=== PATIENT | male | born 1960 | race Caucasian/White ===

== ENCOUNTER 2018-03-08 08:54 | Inpatient (IN) | payer OTHER, MEDICAID ==
[2018-03-08 09:47] LABS: ADD MAN DIFF? NO
[2018-03-08 09:50] LABS: BASOPHIL # 0.1 10^3/ul (0.0-0.1); BASOPHILS % 0.7 % (0.0-2.0); EOSINOPHILS # 0.5 10^3/ul (0.0-0.5); EOSINOPHILS % 5.1 % (0.0-7.0); HEMATOCRIT 22.8 % (42.0-52.0); HEMOGLOBIN 7.3 g/dl (14.0-18.0); LYMPHOCYTES # 2.1 10^3/ul (0.8-2.9); LYMPHOCYTES % 20.3 % (15.0-51.0); MEAN CORPUSCULAR HEMOGLOBIN 26.9 pg (29.0-33.0); MEAN CORPUSCULAR VOLUME 84.1 fl (82.0-101.0); MONOCYTE # 0.8 10^3/ul (0.3-0.9); MONOCYTES % 7.8 % (0.0-11.0); NEUTROPHIL # 6.7 10^3/ul (1.6-7.5); NEUTROPHILS % 65.3 % (39.0-77.0); PLATELET COUNT 430 10^3/UL (140-415); RED BLOOD COUNT 2.71 10^6/ul (4.70-6.10); RED CELL DISTRIBUTION WIDTH 15.3 % (11.5-14.5)
[2018-03-08 09:50] LABS: WHITE BLOOD COUNT 10.3 10^3/ul (4.8-10.8)
[2018-03-08] MEDS: FENTAnyl 50 MCG/ML VIAL IV (10:06)
[2018-03-08 10:21] LABS: INR 1.08; PROTIME 14.1 Sec (11.9-14.9); PT RATIO 1.1
[2018-03-08 10:22] LABS: PARTIAL THROMBOPLASTIN TIME 43.9 Sec (23.0-35.0)
[2018-03-08 10:23] LABS: ANION GAP 12 (5-13); BLOOD UREA NITROGEN 30 mg/dl (7-20); CARBON DIOXIDE 25 mmol/L (21-31); CHLORIDE 97 mmol/L (97-110); CREATININE 2.65 mg/dl (0.61-1.24); Estimated GFR 25 mL/min (>60); GLUCOSE 166 mg/dl (70-220); SODIUM 134 mmol/L (135-144)
[2018-03-08 10:33] LABS: TROPONIN-I < 0.012 ng/ml (0.000-0.120)
[2018-03-08] MEDS ORDERED: ONDANSETRON 4 MG INJ IV (11:00)
[2018-03-08] MEDS ORDERED: ACETAMINOPHEN 325 MG TAB PO (11:00)
[2018-03-08 11:14] LABS: VANCOMYCIN,RANDOM < 5.0 ug/ml
[2018-03-08] MEDS: hydrALAzine 20 MG INJ IV (11:35)
[2018-03-08 12:13] LABS: ERYTHROCYTE SEDIMENTATION RATE 130 mm/Hr (0-20)
[2018-03-08 12:17] LABS: C-REACTIVE PROTEIN 6.6 mg/dl (0.0-0.9)
[2018-03-08 12:58] LABS: ADD UMIC YES; UR ASCORBIC ACID NEGATIVE (NEGATIVE); UR BACTERIA FEW /HPF (NONE SEEN); UR BILIRUBIN (Dip) NEGATIVE (NEGATIVE); UR BLOOD (Dip) NEGATIVE (NEGATIVE); UR CLARITY CLEAR (CLEAR); UR COLOR STRAW (YELLOW); UR GLUCOSE (Dip) NEGATIVE (NEGATIVE); UR KETONES (Dip) NEGATIVE (NEGATIVE); UR LEUKOCYTE ESTERASE (Dip) NEGATIVE Leu/ul (NEGATIVE); UR NITRITE (Dip) NEGATIVE (NEGATIVE); UR RBC 1 /HPF (0-5); UR SPECIFIC GRAVITY (Dip) 1.006 (1.003-1.030); UR TOTAL PROTEIN (Dip) 1+ mg/dl (NEGATIVE); UR UROBILINOGEN (Dip) NEGATIVE (NEGATIVE); UR WBC 1 /HPF (0-5)
[2018-03-08 14:56] LABS: LACTIC ACID 0.9 mmol/L (0.5-2.0)
[2018-03-08] MEDS ORDERED: DEXTROSE 50% 50 ML SYRINGE IV ×4 (15:00→15:30)
[2018-03-08] MEDS ORDERED: GLUCOSE GEL 15 GRAM TUBE BUCCAL ×2 (15:00→15:30)
[2018-03-08] MEDS ORDERED: GLUCOSE GEL 15 GRAM TUBE PO ×4 (15:00→15:30)
[2018-03-08] MEDS ORDERED: GLUCAGON 1 MG INJ IM ×2 (15:00→15:30)
[2018-03-08] MEDS: AMLODIPINE 5 MG TAB PO (15:55)
[2018-03-08] MEDS: LEVOFLOXACIN 500MG/D5W (PMX) 100 ML IVPB (15:56)
[2018-03-08] MEDS: SOD CHLORIDE 0.9% 1,000 ML IV ×2 (15:56→22:56)
[2018-03-08] MEDS: ACCU-CHEK XX ×2 (17:38→20:37)
[2018-03-08] MEDS: INSULIN ASPART [NOVOLOG] 3 ML PEN SC ×3 (17:39→20:28)
[2018-03-08 17:52] LABS: SODIUM,URINE RANDOM 68 mmol/L (30-90)
[2018-03-08 17:52] LABS: CREATININE,URINE RANDOM 37.57 mg/dl (20-370)
[2018-03-08] MEDS: DAPTOMYCIN 280 MG in SOD CHLORIDE 0.9% 100 ML IVPB (17:57)
[2018-03-08] MEDS ORDERED: HYDROCODONE/APAP (5/325) TAB PO (20:00)
[2018-03-08] MEDS: ACETAMINOPHEN 325 MG TAB PO (20:29)
[2018-03-08] MEDS: ATORVASTATIN 10 MG TAB PO (20:29)
[2018-03-08] MEDS: FAMOTIDINE 20 MG TAB PO (20:30)
[2018-03-08] MEDS: LACTOBACILLUS RHAMNOSUS CAP PO (20:30)
[2018-03-08] MEDS: METOPROLOL 25 MG TAB PO (20:30)
[2018-03-08] MEDS: INSULIN GLARGINE [LANTus] (100 UNITS/ML) SYG SC (20:32)
[2018-03-09] MEDS: SOD CHLORIDE 0.9% 1,000 ML IV ×3 (01:37→23:37)
[2018-03-09] MEDS: ACCU-CHEK XX ×5 (02:00→20:31)
[2018-03-09 06:02] LABS: WHITE BLOOD COUNT 8.7 10^3/ul (4.8-10.8)
[2018-03-09 06:02] LABS: ABNORMAL IP MESSAGE 1; HEMATOCRIT 20.5 % (42.0-52.0); MEAN CORPUSCULAR HEMOGLOBIN 26.8 pg (29.0-33.0); MEAN CORPUSCULAR HGB CONC 31.2 g/dl (32.0-37.0); MEAN CORPUSCULAR VOLUME 85.8 fl (82.0-101.0); MEAN PLATELET VOLUME 8.2 fl (7.4-10.4); PLATELET COUNT 407 10^3/UL (140-415); POSITIVE DIFF @See below; RED BLOOD COUNT 2.39 10^6/ul (4.70-6.10); RED CELL DISTRIBUTION WIDTH 15.4 % (11.5-14.5)
[2018-03-09 06:31] LABS: ADD MAN DIFF? YES; HEMOGLOBIN 6.4 g/dl (14.0-18.0)
[2018-03-09 06:52] LABS: PHOSPHORUS 5.7 mg/dl (2.5-4.9)
[2018-03-09 06:58] LABS: ANION GAP 9 (5-13); BLOOD UREA NITROGEN 28 mg/dl (7-20); CALCIUM 8.4 mg/dl (8.4-10.2); CARBON DIOXIDE 23 mmol/L (21-31); CHLORIDE 100 mmol/L (97-110); CREATININE 2.43 mg/dl (0.61-1.24); Estimated GFR 28 mL/min (>60); GLUCOSE 98 mg/dl (70-220); MAGNESIUM 1.7 mg/dl (1.7-2.5); POTASSIUM 4.8 mmol/L (3.5-5.1); SODIUM 132 mmol/L (135-144)
[2018-03-09 07:14] LABS: IRON 28 ug/dl (35-150)
[2018-03-09 07:23] LABS: % IRON SATURATION 13 % SAT (22-52); TOTAL IRON BINDING CAPACITY 218 ug/dl (241-421)
[2018-03-09] MEDS: INSULIN ASPART [NOVOLOG] 3 ML PEN SC ×7 (08:00→20:31)
[2018-03-09 08:29] LABS: BAND NEUTROPHILS #M 0.3 10^3/ul (0.0-0.6); BAND NEUTROPHILS % (M) 4 % (0-4); BASOPHIL #M 0.1 10^3/ul (0.0-0.0); BASOPHILS % (M) 2 % (0-2); EOSINOPHILS % (M) 6 % (0-7); GIANT THROMBO% (M) 2 % (0-0); LYMPHOCYTES #M 1.5 10^3/ul (0.8-2.9); LYMPHOCYTES % (M) 18 % (15-51); MICROCYTOSIS 1+ (0-0); MONOCYTE #M 0.9 10^3/ul (0.3-0.9); MONOCYTES % (M) 11 % (0-11); PLATELET ESTIMATE NORMAL; POLYCHROMASIA 1+ (0-0); SEG NEUT #M 5.2 10^3/ul (1.6-7.5); SEGMENTED NEUTROPHILS (M) % 59 % (39-77); SMUDGE%M 9 % (0-0)
[2018-03-09] MEDS: METOPROLOL 25 MG TAB PO ×2 (09:37→20:31)
[2018-03-09] MEDS: FAMOTIDINE 20 MG TAB PO (09:37)
[2018-03-09] MEDS: FLUCONAZOLE 200 MG TAB PO (09:37)
[2018-03-09] MEDS: LACTOBACILLUS RHAMNOSUS CAP PO ×2 (09:37→20:30)
[2018-03-09] MEDS: AMLODIPINE 5 MG TAB PO (09:38)
[2018-03-09] MEDS: LINAGLIPTIN 5 MG TABLET PO (09:47)
[2018-03-09] MEDS: SODIUM HYPOCHLORITE (1/40) 1 APPLIC BTL IRR (10:22)
[2018-03-09] MEDS ORDERED: MAGNESIUM HYDROXIDE 30ML CUP PO (13:30)
[2018-03-09] MEDS: DOCUSATE SODIUM 100 MG CAP PO (14:21)
[2018-03-09] MEDS: POLYETHYLENE GLYCOL 17 GM PACKET PO (14:22)
[2018-03-09] MEDS: DAPTOMYCIN 280 MG in SOD CHLORIDE 0.9% 100 ML IVPB (17:27)
[2018-03-09] MEDS: SOD FERRIC GLUC COMPLX 125 MG in SOD CHLORIDE 0.9% 100 ML IVPB (18:03)
[2018-03-09] MEDS: ATORVASTATIN 10 MG TAB PO (20:30)
[2018-03-09] MEDS: INSULIN GLARGINE [LANTus] (100 UNITS/ML) SYG SC (20:33)
[2018-03-09 20:56] LABS: IMMEDIATE SPIN CROSSMATCH 1 2
[2018-03-10] MEDS: ACCU-CHEK XX ×5 (02:00→20:16)
[2018-03-10 05:21] LABS: ADD MAN DIFF? NO
[2018-03-10 05:29] LABS: WHITE BLOOD COUNT 11.3 10^3/ul (4.8-10.8)
[2018-03-10 05:29] LABS: BASOPHIL # 0.1 10^3/ul (0.0-0.1); BASOPHILS % 0.5 % (0.0-2.0); EOSINOPHILS # 0.3 10^3/ul (0.0-0.5); EOSINOPHILS % 2.3 % (0.0-7.0); HEMATOCRIT 27.2 % (42.0-52.0); HEMOGLOBIN 8.9 g/dl (14.0-18.0); LYMPHOCYTES % 26.2 % (15.0-51.0); MEAN CORPUSCULAR HEMOGLOBIN 27.7 pg (29.0-33.0); MEAN CORPUSCULAR HGB CONC 32.7 g/dl (32.0-37.0); MEAN CORPUSCULAR VOLUME 84.7 fl (82.0-101.0); MEAN PLATELET VOLUME 8.2 fl (7.4-10.4); MONOCYTE # 0.9 10^3/ul (0.3-0.9); NEUTROPHIL # 7.1 10^3/ul (1.6-7.5); NEUTROPHILS % 62.6 % (39.0-77.0); PLATELET COUNT 402 10^3/UL (140-415); RED BLOOD COUNT 3.21 10^6/ul (4.70-6.10); RED CELL DISTRIBUTION WIDTH 14.6 % (11.5-14.5)
[2018-03-10 05:50] LABS: CREATINE KINASE 32 IU/L (23-200)
[2018-03-10 05:53] LABS: ANION GAP 13 (5-13); BLOOD UREA NITROGEN 22 mg/dl (7-20); CALCIUM 8.3 mg/dl (8.4-10.2); CARBON DIOXIDE 21 mmol/L (21-31); CHLORIDE 100 mmol/L (97-110); CREATININE 2.34 mg/dl (0.61-1.24); Estimated GFR 29 mL/min (>60); GLUCOSE 67 mg/dl (70-220); POTASSIUM 4.3 mmol/L (3.5-5.1); SODIUM 134 mmol/L (135-144)
[2018-03-10 05:57] LABS: PHOSPHORUS 5.7 mg/dl (2.5-4.9)
[2018-03-10 05:57] LABS: MAGNESIUM 1.5 mg/dl (1.7-2.5)
[2018-03-10] MEDS: INSULIN ASPART [NOVOLOG] 3 ML PEN SC ×7 (08:00→20:25)
[2018-03-10 08:13] LABS: OCCULT BLOOD STOOL NEGATIVE (NEGATIVE)
[2018-03-10] MEDS: POLYETHYLENE GLYCOL 17 GM PACKET PO (08:23)
[2018-03-10] MEDS: AMLODIPINE 5 MG TAB PO (08:23)
[2018-03-10] MEDS: LINAGLIPTIN 5 MG TABLET PO (08:23)
[2018-03-10] MEDS: FAMOTIDINE 20 MG TAB PO (08:24)
[2018-03-10] MEDS: DOCUSATE SODIUM 100 MG CAP PO (08:24)
[2018-03-10] MEDS: LACTOBACILLUS RHAMNOSUS CAP PO ×2 (08:24→20:15)
[2018-03-10] MEDS: METOPROLOL 25 MG TAB PO ×2 (08:24→20:15)
[2018-03-10] MEDS: FLUCONAZOLE 200 MG TAB PO (08:24)
[2018-03-10] MEDS: SODIUM HYPOCHLORITE (1/40) 1 APPLIC BTL IRR (08:27)
[2018-03-10] MEDS: LEVOFLOXACIN 500MG/D5W (PMX) 100 ML IVPB (16:13)
[2018-03-10] MEDS: DAPTOMYCIN 280 MG in SOD CHLORIDE 0.9% 100 ML IVPB (17:53)
[2018-03-10] MEDS: SOD FERRIC GLUC COMPLX 125 MG in SOD CHLORIDE 0.9% 100 ML IVPB (18:58)
[2018-03-10] MEDS: ATORVASTATIN 10 MG TAB PO (20:15)
[2018-03-10] MEDS: ACETAMINOPHEN 325 MG TAB PO (20:15)
[2018-03-10] MEDS: INSULIN GLARGINE [LANTus] (100 UNITS/ML) SYG SC (20:24)
[2018-03-11] MEDS: ACCU-CHEK XX ×5 (01:55→20:36)
[2018-03-11 05:39] LABS: ADD MAN DIFF? NO
[2018-03-11 05:42] LABS: WHITE BLOOD COUNT 8.9 10^3/ul (4.8-10.8)
[2018-03-11 05:42] LABS: BASOPHILS % 0.4 % (0.0-2.0); EOSINOPHILS # 0.3 10^3/ul (0.0-0.5); EOSINOPHILS % 3.1 % (0.0-7.0); HEMATOCRIT 27.8 % (42.0-52.0); HEMOGLOBIN 9.2 g/dl (14.0-18.0); LYMPHOCYTES % 22.2 % (15.0-51.0); MEAN CORPUSCULAR HGB CONC 33.1 g/dl (32.0-37.0); MEAN CORPUSCULAR VOLUME 84.8 fl (82.0-101.0); MEAN PLATELET VOLUME 7.9 fl (7.4-10.4); MONOCYTE # 0.7 10^3/ul (0.3-0.9); MONOCYTES % 7.5 % (0.0-11.0); NEUTROPHIL # 5.9 10^3/ul (1.6-7.5); NEUTROPHILS % 66.2 % (39.0-77.0); PLATELET COUNT 423 10^3/UL (140-415); RED BLOOD COUNT 3.28 10^6/ul (4.70-6.10); RED CELL DISTRIBUTION WIDTH 14.6 % (11.5-14.5)
[2018-03-11 06:17] LABS: MAGNESIUM 1.7 mg/dl (1.7-2.5)
[2018-03-11 06:20] LABS: ANION GAP 15 (5-13); BLOOD UREA NITROGEN 21 mg/dl (7-20); CALCIUM 8.3 mg/dl (8.4-10.2); CARBON DIOXIDE 24 mmol/L (21-31); CHLORIDE 99 mmol/L (97-110); CREATININE 2.51 mg/dl (0.61-1.24); Estimated GFR 27 mL/min (>60); GLUCOSE 238 mg/dl (70-220); POTASSIUM 4.4 mmol/L (3.5-5.1); SODIUM 138 mmol/L (135-144)
[2018-03-11] MEDS: INSULIN ASPART [NOVOLOG] 3 ML PEN SC ×7 (07:49→20:30)
[2018-03-11] MEDS: DOCUSATE SODIUM 100 MG CAP PO (08:08)
[2018-03-11] MEDS: LACTOBACILLUS RHAMNOSUS CAP PO ×2 (08:08→20:28)
[2018-03-11] MEDS: AMLODIPINE 5 MG TAB PO (08:08)
[2018-03-11] MEDS: LINAGLIPTIN 5 MG TABLET PO (08:08)
[2018-03-11] MEDS: SODIUM HYPOCHLORITE (1/40) 1 APPLIC BTL IRR (08:09)
[2018-03-11] MEDS: FAMOTIDINE 20 MG TAB PO (08:09)
[2018-03-11] MEDS: FLUCONAZOLE 200 MG TAB PO (08:09)
[2018-03-11] MEDS: METOPROLOL 25 MG TAB PO ×2 (08:09→20:29)
[2018-03-11] MEDS: POLYETHYLENE GLYCOL 17 GM PACKET PO (08:09)
[2018-03-11] MEDS: ALTEPLASE (CATHFLO) 2 MG INJ CATHETER (11:29)
[2018-03-11] MEDS ORDERED: HEPARIN 5,000 UNIT/0.5 ML VIAL ×2 (13:59→20:49)
[2018-03-11] MEDS: HEPARIN 5,000 UNIT/1 ML VIAL SC ×2 (14:11→21:54)
[2018-03-11 15:01] LABS: CREATININE, RANDOM URINE 41 mg/dL (20-320); MICROALBUMIN 26.6 mg/dL; MICROALBUMIN/CREATININE RATIO 649 (<30)
[2018-03-11] MEDS: DAPTOMYCIN 280 MG in SOD CHLORIDE 0.9% 100 ML IVPB (16:49)
[2018-03-11] MEDS: SOD FERRIC GLUC COMPLX 125 MG in SOD CHLORIDE 0.9% 100 ML IVPB (17:38)
[2018-03-11] MEDS: ACETAMINOPHEN 325 MG TAB PO (19:48)
[2018-03-11] MEDS: ATORVASTATIN 10 MG TAB PO (20:28)
[2018-03-11] MEDS: INSULIN GLARGINE [LANTus] (100 UNITS/ML) SYG SC (20:34)
[2018-03-12] MEDS: ACCU-CHEK XX ×6 (00:04→20:41)
[2018-03-12] MEDS ORDERED: HEPARIN 5,000 UNIT/0.5 ML VIAL ×3 (05:36→21:53)
[2018-03-12] MEDS: LEVOFLOXACIN 500 MG TAB PO (05:47)
[2018-03-12] MEDS: HEPARIN 5,000 UNIT/1 ML VIAL SC ×3 (05:52→22:07)
[2018-03-12 06:58] LABS: ADD MAN DIFF? NO
[2018-03-12 07:03] LABS: BASOPHIL # 0.1 10^3/ul (0.0-0.1); BASOPHILS % 0.5 % (0.0-2.0); EOSINOPHILS # 0.4 10^3/ul (0.0-0.5); EOSINOPHILS % 4.4 % (0.0-7.0); HEMATOCRIT 26.1 % (42.0-52.0); HEMOGLOBIN 8.5 g/dl (14.0-18.0); LYMPHOCYTES # 2.6 10^3/ul (0.8-2.9); LYMPHOCYTES % 25.6 % (15.0-51.0); MEAN CORPUSCULAR HEMOGLOBIN 27.7 pg (29.0-33.0); MEAN CORPUSCULAR HGB CONC 32.6 g/dl (32.0-37.0); MEAN PLATELET VOLUME 8.2 fl (7.4-10.4); MONOCYTE # 0.7 10^3/ul (0.3-0.9); MONOCYTES % 7.4 % (0.0-11.0); NEUTROPHIL # 6.1 10^3/ul (1.6-7.5); NEUTROPHILS % 61.6 % (39.0-77.0); PLATELET COUNT 394 10^3/UL (140-415); RED BLOOD COUNT 3.07 10^6/ul (4.70-6.10); RED CELL DISTRIBUTION WIDTH 14.8 % (11.5-14.5)
[2018-03-12 07:24] LABS: ANION GAP 8 (5-13); BLOOD UREA NITROGEN 24 mg/dl (7-20); CALCIUM 8.4 mg/dl (8.4-10.2); CARBON DIOXIDE 25 mmol/L (21-31); CHLORIDE 99 mmol/L (97-110); Estimated GFR 27 mL/min (>60); GLUCOSE 206 mg/dl (70-220); MAGNESIUM 1.6 mg/dl (1.7-2.5); PHOSPHORUS 4.3 mg/dl (2.5-4.9); POTASSIUM 4.5 mmol/L (3.5-5.1); SODIUM 132 mmol/L (135-144)
[2018-03-12] MEDS: INSULIN ASPART [NOVOLOG] 3 ML PEN SC ×7 (08:23→20:24)
[2018-03-12] MEDS: FLUCONAZOLE 200 MG TAB PO (08:26)
[2018-03-12] MEDS: FAMOTIDINE 20 MG TAB PO (08:26)
[2018-03-12] MEDS: LINAGLIPTIN 5 MG TABLET PO (08:26)
[2018-03-12] MEDS: DOCUSATE SODIUM 100 MG CAP PO (08:26)
[2018-03-12] MEDS: LACTOBACILLUS RHAMNOSUS CAP PO ×2 (08:26→20:24)
[2018-03-12] MEDS: METOPROLOL 25 MG TAB PO ×2 (08:27→20:24)
[2018-03-12] MEDS: AMLODIPINE 5 MG TAB PO (08:27)
[2018-03-12] MEDS: SODIUM HYPOCHLORITE (1/40) 1 APPLIC BTL IRR (08:29)
[2018-03-12] MEDS: POLYETHYLENE GLYCOL 17 GM PACKET PO (08:30)
[2018-03-12] MEDS: SOD FERRIC GLUC COMPLX 125 MG in SOD CHLORIDE 0.9% 100 ML IVPB (16:36)
[2018-03-12] MEDS: DAPTOMYCIN 280 MG in SOD CHLORIDE 0.9% 100 ML IVPB (16:36)
[2018-03-12] MEDS: ATORVASTATIN 10 MG TAB PO (20:24)
[2018-03-12] MEDS: INSULIN GLARGINE [LANTus] (100 UNITS/ML) SYG SC (20:41)
[2018-03-12] MEDS: ACETAMINOPHEN 325 MG TAB PO (21:04)
[2018-03-13] MEDS ORDERED: SOD CHLORIDE 0.9% IVPB (05:00)
[2018-03-13] MEDS ORDERED: ACYCLOVIR IVPB (05:00)
[2018-03-13] MEDS ORDERED: HEPARIN 5,000 UNIT/0.5 ML VIAL ×3 (05:07→20:32)
[2018-03-13] MEDS: HEPARIN 5,000 UNIT/1 ML VIAL SC ×3 (05:17→20:49)
[2018-03-13 06:02] LABS: ADD MAN DIFF? NO
[2018-03-13 06:08] LABS: BASOPHIL # 0.1 10^3/ul (0.0-0.1); BASOPHILS % 0.6 % (0.0-2.0); EOSINOPHILS # 0.5 10^3/ul (0.0-0.5); EOSINOPHILS % 4.9 % (0.0-7.0); HEMATOCRIT 25.7 % (42.0-52.0); HEMOGLOBIN 8.6 g/dl (14.0-18.0); LYMPHOCYTES # 2.3 10^3/ul (0.8-2.9); LYMPHOCYTES % 24.3 % (15.0-51.0); MEAN CORPUSCULAR HEMOGLOBIN 28.2 pg (29.0-33.0); MEAN CORPUSCULAR HGB CONC 33.5 g/dl (32.0-37.0); MEAN CORPUSCULAR VOLUME 84.3 fl (82.0-101.0); MEAN PLATELET VOLUME 8.1 fl (7.4-10.4); MONOCYTE # 0.8 10^3/ul (0.3-0.9); MONOCYTES % 8.2 % (0.0-11.0); NEUTROPHIL # 5.7 10^3/ul (1.6-7.5); NEUTROPHILS % 61.5 % (39.0-77.0); PLATELET COUNT 390 10^3/UL (140-415); RED BLOOD COUNT 3.05 10^6/ul (4.70-6.10); RED CELL DISTRIBUTION WIDTH 14.7 % (11.5-14.5)
[2018-03-13 06:08] LABS: WHITE BLOOD COUNT 9.3 10^3/ul (4.8-10.8)
[2018-03-13 06:58] LABS: ANION GAP 12 (5-13); BLOOD UREA NITROGEN 27 mg/dl (7-20); CALCIUM 8.7 mg/dl (8.4-10.2); CARBON DIOXIDE 24 mmol/L (21-31); CHLORIDE 103 mmol/L (97-110); CREATININE 2.64 mg/dl (0.61-1.24); Estimated GFR 25 mL/min (>60); GLUCOSE 105 mg/dl (70-220); POTASSIUM 4.2 mmol/L (3.5-5.1); SODIUM 139 mmol/L (135-144)
[2018-03-13] MEDS: ACCU-CHEK XX ×4 (07:00→20:49)
[2018-03-13 07:07] LABS: MAGNESIUM 1.6 mg/dl (1.7-2.5)
[2018-03-13] MEDS: INSULIN ASPART [NOVOLOG] 3 ML PEN SC ×7 (08:00→20:43)
[2018-03-13] MEDS: FLUCONAZOLE 200 MG TAB PO (08:19)
[2018-03-13] MEDS: LACTOBACILLUS RHAMNOSUS CAP PO ×2 (08:19→20:43)
[2018-03-13] MEDS: DOCUSATE SODIUM 100 MG CAP PO (08:19)
[2018-03-13] MEDS: FAMOTIDINE 20 MG TAB PO (08:19)
[2018-03-13] MEDS: AMLODIPINE 5 MG TAB PO (08:19)
[2018-03-13] MEDS: POLYETHYLENE GLYCOL 17 GM PACKET PO (08:19)
[2018-03-13] MEDS: METOPROLOL 25 MG TAB PO ×2 (08:20→20:43)
[2018-03-13] MEDS: LINAGLIPTIN 5 MG TABLET PO (08:20)
[2018-03-13] MEDS: SODIUM HYPOCHLORITE (1/40) 1 APPLIC BTL IRR (08:23)
[2018-03-13] MEDS: MAGNESIUM SULFATE 2 GM/50 ML 50 ML IVPB (10:31)
[2018-03-13] MEDS: SOD FERRIC GLUC COMPLX 125 MG in SOD CHLORIDE 0.9% 100 ML IVPB (16:26)
[2018-03-13] MEDS: DAPTOMYCIN 280 MG in SOD CHLORIDE 0.9% 100 ML IVPB (18:01)
[2018-03-13] MEDS: ATORVASTATIN 10 MG TAB PO (20:43)
[2018-03-13] MEDS: INSULIN GLARGINE [LANTus] (100 UNITS/ML) SYG SC (20:48)
[2018-03-14] MEDS: ACCU-CHEK XX ×5 (01:12→20:43)
[2018-03-14] MEDS ORDERED: HEPARIN 5,000 UNIT/0.5 ML VIAL ×3 (05:31→21:13)
[2018-03-14] MEDS: LEVOFLOXACIN 500 MG TAB PO (05:51)
[2018-03-14] MEDS: HEPARIN 5,000 UNIT/1 ML VIAL SC ×3 (06:02→22:01)
[2018-03-14 06:32] LABS: ADD MAN DIFF? NO
[2018-03-14 06:37] LABS: WHITE BLOOD COUNT 9.2 10^3/ul (4.8-10.8)
[2018-03-14 06:37] LABS: BASOPHIL # 0.1 10^3/ul (0.0-0.1); BASOPHILS % 0.5 % (0.0-2.0); EOSINOPHILS # 0.5 10^3/ul (0.0-0.5); EOSINOPHILS % 5.2 % (0.0-7.0); HEMATOCRIT 25.4 % (42.0-52.0); HEMOGLOBIN 8.2 g/dl (14.0-18.0); LYMPHOCYTES # 2.2 10^3/ul (0.8-2.9); LYMPHOCYTES % 23.8 % (15.0-51.0); MEAN CORPUSCULAR HEMOGLOBIN 27.4 pg (29.0-33.0); MEAN CORPUSCULAR HGB CONC 32.3 g/dl (32.0-37.0); MEAN CORPUSCULAR VOLUME 84.9 fl (82.0-101.0); MEAN PLATELET VOLUME 8.1 fl (7.4-10.4); MONOCYTE # 0.8 10^3/ul (0.3-0.9); MONOCYTES % 8.3 % (0.0-11.0); NEUTROPHIL # 5.7 10^3/ul (1.6-7.5); NEUTROPHILS % 61.8 % (39.0-77.0); PLATELET COUNT 362 10^3/UL (140-415); RED BLOOD COUNT 2.99 10^6/ul (4.70-6.10); RED CELL DISTRIBUTION WIDTH 14.9 % (11.5-14.5)
[2018-03-14 07:03] LABS: ANION GAP 10 (5-13); BLOOD UREA NITROGEN 25 mg/dl (7-20); CALCIUM 8.6 mg/dl (8.4-10.2); CARBON DIOXIDE 26 mmol/L (21-31); CHLORIDE 99 mmol/L (97-110); CREATININE 2.48 mg/dl (0.61-1.24); Estimated GFR 27 mL/min (>60); GLUCOSE 125 mg/dl (70-220); POTASSIUM 4.5 mmol/L (3.5-5.1); SODIUM 135 mmol/L (135-144)
[2018-03-14 07:05] LABS: MAGNESIUM 1.9 mg/dl (1.7-2.5)
[2018-03-14] MEDS: DOCUSATE SODIUM 100 MG CAP PO (08:11)
[2018-03-14] MEDS: LINAGLIPTIN 5 MG TABLET PO (08:11)
[2018-03-14] MEDS: FAMOTIDINE 20 MG TAB PO (08:11)
[2018-03-14] MEDS: POLYETHYLENE GLYCOL 17 GM PACKET PO (08:11)
[2018-03-14] MEDS: METOPROLOL 25 MG TAB PO ×2 (08:12→20:39)
[2018-03-14] MEDS: FLUCONAZOLE 200 MG TAB PO (08:12)
[2018-03-14] MEDS: LACTOBACILLUS RHAMNOSUS CAP PO ×2 (08:12→20:38)
[2018-03-14] MEDS: SODIUM HYPOCHLORITE (1/40) 1 APPLIC BTL IRR (08:13)
[2018-03-14] MEDS: AMLODIPINE 5 MG TAB PO (08:13)
[2018-03-14] MEDS: INSULIN ASPART [NOVOLOG] 3 ML PEN SC ×7 (08:19→20:39)
[2018-03-14] MEDS: ATORVASTATIN 10 MG TAB PO (20:38)
[2018-03-14] MEDS: INSULIN GLARGINE [LANTus] (100 UNITS/ML) SYG SC (20:42)
[2018-03-15] MEDS: ACCU-CHEK XX ×5 (02:00→20:36)
[2018-03-15] MEDS ORDERED: HEPARIN 5,000 UNIT/0.5 ML VIAL ×3 (05:25→21:27)
[2018-03-15] MEDS: HEPARIN 5,000 UNIT/1 ML VIAL SC ×4 (05:51→21:36)
[2018-03-15 07:32] LABS: ADD MAN DIFF? NO
[2018-03-15 07:38] LABS: BASOPHILS % 0.4 % (0.0-2.0); EOSINOPHILS # 0.6 10^3/ul (0.0-0.5); HEMATOCRIT 25.9 % (42.0-52.0); HEMOGLOBIN 8.5 g/dl (14.0-18.0); LYMPHOCYTES # 2.5 10^3/ul (0.8-2.9); LYMPHOCYTES % 27.2 % (15.0-51.0); MEAN CORPUSCULAR HEMOGLOBIN 28.1 pg (29.0-33.0); MEAN CORPUSCULAR HGB CONC 32.8 g/dl (32.0-37.0); MEAN CORPUSCULAR VOLUME 85.5 fl (82.0-101.0); MEAN PLATELET VOLUME 8.2 fl (7.4-10.4); MONOCYTE # 0.8 10^3/ul (0.3-0.9); MONOCYTES % 8.7 % (0.0-11.0); NEUTROPHIL # 5.2 10^3/ul (1.6-7.5); NEUTROPHILS % 57.2 % (39.0-77.0); PLATELET COUNT 362 10^3/UL (140-415); RED BLOOD COUNT 3.03 10^6/ul (4.70-6.10); RED CELL DISTRIBUTION WIDTH 14.9 % (11.5-14.5)
[2018-03-15 07:38] LABS: WHITE BLOOD COUNT 9.2 10^3/ul (4.8-10.8)
[2018-03-15 07:50] LABS: ANION GAP 11 (5-13); BLOOD UREA NITROGEN 26 mg/dl (7-20); CALCIUM 8.7 mg/dl (8.4-10.2); CARBON DIOXIDE 25 mmol/L (21-31); CHLORIDE 102 mmol/L (97-110); CREATININE 2.54 mg/dl (0.61-1.24); Estimated GFR 26 mL/min (>60); GLUCOSE 167 mg/dl (70-220); POTASSIUM 4.6 mmol/L (3.5-5.1); SODIUM 138 mmol/L (135-144)
[2018-03-15 07:51] LABS: MAGNESIUM 1.8 mg/dl (1.7-2.5)
[2018-03-15] MEDS: INSULIN ASPART [NOVOLOG] 3 ML PEN SC ×7 (08:18→20:52)
[2018-03-15] MEDS: POLYETHYLENE GLYCOL 17 GM PACKET PO (08:56)
[2018-03-15] MEDS: FLUCONAZOLE 200 MG TAB PO (08:56)
[2018-03-15] MEDS: METOPROLOL 25 MG TAB PO ×2 (08:57→20:36)
[2018-03-15] MEDS: AMLODIPINE 5 MG TAB PO (08:58)
[2018-03-15] MEDS: LACTOBACILLUS RHAMNOSUS CAP PO ×2 (08:58→20:36)
[2018-03-15] MEDS: LINAGLIPTIN 5 MG TABLET PO (08:58)
[2018-03-15] MEDS: FAMOTIDINE 20 MG TAB PO (08:58)
[2018-03-15] MEDS: DOCUSATE SODIUM 100 MG CAP PO (08:59)
[2018-03-15] MEDS: SODIUM HYPOCHLORITE (1/40) 1 APPLIC BTL IRR (11:21)
[2018-03-15] MEDS: DAPTOMYCIN 420 MG in SOD CHLORIDE 0.9% 100 ML IVPB (17:50)
[2018-03-15] MEDS: ATORVASTATIN 10 MG TAB PO (20:36)
[2018-03-15] MEDS: INSULIN GLARGINE [LANTus] (100 UNITS/ML) SYG SC (20:52)
[2018-03-16] MEDS: INSULIN ASPART [NOVOLOG] 3 ML PEN SC ×9 (01:00→21:00)
[2018-03-16] MEDS: ACCU-CHEK XX ×5 (01:30→21:36)
[2018-03-16] MEDS: LEVOFLOXACIN 500 MG TAB PO (04:40)
[2018-03-16] MEDS: HEPARIN 5,000 UNIT/1 ML VIAL SC (04:40)
[2018-03-16] MEDS ORDERED: ONDANSETRON 4 MG INJ (07:00)
[2018-03-16 07:35] LABS: ADD MAN DIFF? NO
[2018-03-16 07:37] LABS: WHITE BLOOD COUNT 9.8 10^3/ul (4.8-10.8)
[2018-03-16 07:37] LABS: BASOPHILS % 0.4 % (0.0-2.0); EOSINOPHILS # 0.6 10^3/ul (0.0-0.5); EOSINOPHILS % 6.4 % (0.0-7.0); HEMATOCRIT 25.7 % (42.0-52.0); HEMOGLOBIN 8.4 g/dl (14.0-18.0); LYMPHOCYTES # 2.7 10^3/ul (0.8-2.9); MEAN CORPUSCULAR HGB CONC 32.7 g/dl (32.0-37.0); MEAN CORPUSCULAR VOLUME 85.7 fl (82.0-101.0); MONOCYTE # 0.8 10^3/ul (0.3-0.9); MONOCYTES % 8.6 % (0.0-11.0); NEUTROPHIL # 5.5 10^3/ul (1.6-7.5); NEUTROPHILS % 56.1 % (39.0-77.0); PLATELET COUNT 352 10^3/UL (140-415); RED CELL DISTRIBUTION WIDTH 14.9 % (11.5-14.5)
[2018-03-16 08:10] LABS: ANION GAP 13 (5-13); BLOOD UREA NITROGEN 28 mg/dl (7-20); CALCIUM 8.7 mg/dl (8.4-10.2); CARBON DIOXIDE 24 mmol/L (21-31); CHLORIDE 102 mmol/L (97-110); Estimated GFR 27 mL/min (>60); GLUCOSE 95 mg/dl (70-220); POTASSIUM 4.6 mmol/L (3.5-5.1); SODIUM 139 mmol/L (135-144)
[2018-03-16] MEDS: LACTOBACILLUS RHAMNOSUS CAP PO ×2 (08:30→21:42)
[2018-03-16] MEDS: DOCUSATE SODIUM 100 MG CAP PO (08:30)
[2018-03-16] MEDS: AMLODIPINE 5 MG TAB PO (08:31)
[2018-03-16] MEDS: METOPROLOL 25 MG TAB PO ×2 (08:31→21:42)
[2018-03-16] MEDS: FAMOTIDINE 20 MG TAB PO (08:31)
[2018-03-16] MEDS: FLUCONAZOLE 200 MG TAB PO (08:31)
[2018-03-16] MEDS: POLYETHYLENE GLYCOL 17 GM PACKET PO (08:32)
[2018-03-16] MEDS: LINAGLIPTIN 5 MG TABLET PO (08:37)
[2018-03-16] MEDS: SODIUM HYPOCHLORITE (1/40) 1 APPLIC BTL IRR (09:00)
[2018-03-16] MEDS: D5W-0.45 NACL + KCL 20 MEQ 1,000 ML IV (10:54)
[2018-03-16] MEDS ORDERED: FENTAnyl 50 MCG/ML VIAL (17:21)
[2018-03-16] MEDS ORDERED: MIDAZOLAM 1 MG/ML 2 ML INJ (17:21)
[2018-03-16] MEDS ORDERED: LIDOCAINE 2% (SDV) 5 ML INJ (17:29)
[2018-03-16] MEDS ORDERED: ETOMIDATE 20 MG INJ (17:29)
[2018-03-16] MEDS ORDERED: METOCLOPRAMIDE 10 MG INJ (17:30)
[2018-03-16] MEDS ORDERED: GENTAMICIN 80 MG INJ (19:04)
[2018-03-16] MEDS ORDERED: ROPIVACAINE 0.5 % 30 ML VIAL (19:18)
[2018-03-16] MEDS ORDERED: HYDROmorphONE 1 MG/5 ML IV SYRINGE IV ×2 (19:30)
[2018-03-16] MEDS ORDERED: ONDANSETRON 4 MG INJ IV (19:30)
[2018-03-16] MEDS ORDERED: LABETALOL HCL 20MG INJ IV (19:30)
[2018-03-16] MEDS ORDERED: DIPHENHYDRAMINE 50 MG INJ IV (19:30)
[2018-03-16] MEDS ORDERED: hydrALAzine 20 MG INJ IV (19:30)
[2018-03-16] MEDS ORDERED: IPRATROPIUM (NEB) 0.5 MG/2.5 ML AMP HHN (19:30)
[2018-03-16] MEDS ORDERED: LEVALBUTEROL (NEB) 1.25 MG/0.5 ML AMP HHN (19:30)
[2018-03-16] MEDS ORDERED: FENTAnyl 50 MCG/ML VIAL IV ×2 (19:30)
[2018-03-16] MEDS: VANCOMYCIN 1 GM INJ (19:59)
[2018-03-16] MEDS: POLYMYXIN B 500000 UNIT INJ (19:59)
[2018-03-16] MEDS: INSULIN GLARGINE [LANTus] (100 UNITS/ML) SYG SC (21:41)
[2018-03-16] MEDS: ATORVASTATIN 10 MG TAB PO (21:42)
[2018-03-17] MEDS: ACCU-CHEK XX ×5 (02:00→21:00)
[2018-03-17 06:15] LABS: ADD MAN DIFF? NO
[2018-03-17 06:20] LABS: WHITE BLOOD COUNT 9.9 10^3/ul (4.8-10.8)
[2018-03-17 06:20] LABS: BASOPHIL # 0.1 10^3/ul (0.0-0.1); BASOPHILS % 0.6 % (0.0-2.0); EOSINOPHILS # 0.6 10^3/ul (0.0-0.5); EOSINOPHILS % 5.6 % (0.0-7.0); HEMATOCRIT 24.6 % (42.0-52.0); LYMPHOCYTES # 1.9 10^3/ul (0.8-2.9); LYMPHOCYTES % 19.2 % (15.0-51.0); MEAN CORPUSCULAR HEMOGLOBIN 27.9 pg (29.0-33.0); MEAN CORPUSCULAR HGB CONC 32.5 g/dl (32.0-37.0); MEAN CORPUSCULAR VOLUME 85.7 fl (82.0-101.0); MEAN PLATELET VOLUME 8.2 fl (7.4-10.4); MONOCYTE # 0.9 10^3/ul (0.3-0.9); MONOCYTES % 8.7 % (0.0-11.0); NEUTROPHIL # 6.5 10^3/ul (1.6-7.5); NEUTROPHILS % 65.4 % (39.0-77.0); PLATELET COUNT 301 10^3/UL (140-415); RED BLOOD COUNT 2.87 10^6/ul (4.70-6.10); RED CELL DISTRIBUTION WIDTH 15.2 % (11.5-14.5)
[2018-03-17 07:03] LABS: CREATINE KINASE 24 IU/L (23-200)
[2018-03-17 07:03] LABS: ANION GAP 9 (5-13); BLOOD UREA NITROGEN 27 mg/dl (7-20); CALCIUM 8.4 mg/dl (8.4-10.2); CARBON DIOXIDE 25 mmol/L (21-31); CHLORIDE 101 mmol/L (97-110); CREATININE 2.31 mg/dl (0.61-1.24); Estimated GFR 29 mL/min (>60); GLUCOSE 144 mg/dl (70-220); POTASSIUM 4.2 mmol/L (3.5-5.1); SODIUM 135 mmol/L (135-144)
[2018-03-17] MEDS: INSULIN ASPART [NOVOLOG] 3 ML PEN SC ×7 (08:00→20:52)
[2018-03-17] MEDS: POLYETHYLENE GLYCOL 17 GM PACKET PO (09:00)
[2018-03-17] MEDS: DOCUSATE SODIUM 100 MG CAP PO (09:02)
[2018-03-17] MEDS: FLUCONAZOLE 200 MG TAB PO (09:03)
[2018-03-17] MEDS: LACTOBACILLUS RHAMNOSUS CAP PO ×2 (09:03→20:52)
[2018-03-17] MEDS: METOPROLOL 25 MG TAB PO ×2 (09:03→20:52)
[2018-03-17] MEDS: LINAGLIPTIN 5 MG TABLET PO (09:03)
[2018-03-17] MEDS: SODIUM HYPOCHLORITE (1/40) 1 APPLIC BTL IRR (09:04)
[2018-03-17] MEDS: AMLODIPINE 5 MG TAB PO (09:04)
[2018-03-17] MEDS: FAMOTIDINE 20 MG TAB PO (09:04)
[2018-03-17] MEDS: DAPTOMYCIN 420 MG in SOD CHLORIDE 0.9% 100 ML IVPB (17:48)
[2018-03-17] MEDS: ATORVASTATIN 10 MG TAB PO (20:52)
[2018-03-17] MEDS: INSULIN GLARGINE [LANTus] (100 UNITS/ML) SYG SC (20:57)
== END 2018-03-18 00:15 | disposition home health service (06) | DRG 255 ==
LOC: E/R 08:54 → 2NE 10:48
PROC: 0Y6R0Z1 Detachment at Right 2nd Toe, High, Open Approach (ICD-10-PCS; principal; 2018-03-16 19:22)
PROC: 0QBN0ZZ Excision of Right Metatarsal, Open Approach (ICD-10-PCS; 2018-03-16 19:22)
PROC: 0YHM0YZ Insertion of Other Device into Right Foot, Open Approach (ICD-10-PCS; 2018-03-16 19:22)
PROC: 30233N1 Transfusion of Nonautologous Red Blood Cells into Peripheral Vein, Percutaneous Approach (ICD-10-PCS; 2018-03-16 19:22)
DX: E11.52 Type 2 diabetes mellitus with diabetic peripheral angiopathy with gangrene (principal); N17.0 Acute kidney failure with tubular necrosis; M86.9 Osteomyelitis, unspecified; I96 Gangrene, not elsewhere classified; L03.115 Cellulitis of right lower limb; E11.621 Type 2 diabetes mellitus with foot ulcer; L97.519 Non-pressure chronic ulcer of other part of right foot with unspecified severity; E11.69 Type 2 diabetes mellitus with other specified complication; E11.40 Type 2 diabetes mellitus with diabetic neuropathy, unspecified; I12.9 Hypertensive chronic kidney disease with stage 1 through stage 4 chronic kidney disease, or unspecified chronic kidney disease; E11.22 Type 2 diabetes mellitus with diabetic chronic kidney disease; N18.9 Chronic kidney disease, unspecified; R33.9 Retention of urine, unspecified; D50.9 Iron deficiency anemia, unspecified
CPT/HCPCS: 36415; 36430; 71045; 73718; 73721; 76775; 80048; 80202; 81001; 81003; 82043; 82270; 82550; 82962; 83540; 83605; 83735; 84100; 84155; 84300; 84484; 85025; 85610; 85651; 85730; 86140; 86850; 86900; 86901; 86920; 87040; 87045; 87070; 87075; 87081; 87086; 88305; 88311; 93005; 93922; 96374; 99285-25

== ENCOUNTER 2018-04-27 10:02 | Emergency (ER) | payer OTHER ==
[2018-04-27 10:35] LABS: ADD MAN DIFF? NO
[2018-04-27 10:37] LABS: WHITE BLOOD COUNT 9.2 10^3/ul (4.8-10.8)
[2018-04-27 10:37] LABS: BASOPHIL # 0.1 10^3/ul (0.0-0.1); BASOPHILS % 0.5 % (0.0-2.0); EOSINOPHILS # 0.7 10^3/ul (0.0-0.5); EOSINOPHILS % 7.8 % (0.0-7.0); HEMATOCRIT 24.1 % (42.0-52.0); HEMOGLOBIN 7.8 g/dl (14.0-18.0); LYMPHOCYTES # 2.9 10^3/ul (0.8-2.9); LYMPHOCYTES % 31.2 % (15.0-51.0); MEAN CORPUSCULAR HEMOGLOBIN 28.5 pg (29.0-33.0); MEAN CORPUSCULAR HGB CONC 32.4 g/dl (32.0-37.0); MEAN PLATELET VOLUME 8.6 fl (7.4-10.4); MONOCYTE # 0.9 10^3/ul (0.3-0.9); NEUTROPHIL # 4.6 10^3/ul (1.6-7.5); NEUTROPHILS % 50.2 % (39.0-77.0); PLATELET COUNT 329 10^3/UL (140-415); RED BLOOD COUNT 2.74 10^6/ul (4.70-6.10); RED CELL DISTRIBUTION WIDTH 18.6 % (11.5-14.5)
[2018-04-27 10:55] LABS: ALANINE AMINOTRANSFERASE 31 IU/L (13-69); ALBUMIN/GLOBULIN RATIO 0.86; ALKALINE PHOSPHATASE 114 IU/L (42-121); ANION GAP 8 (5-13); ASPARTATE AMINO TRANSFERASE 38 IU/L (15-46); BLOOD UREA NITROGEN 47 mg/dl (7-20); CALCIUM 9.6 mg/dl (8.4-10.2); CARBON DIOXIDE 20 mmol/L (21-31); CHLORIDE 110 mmol/L (97-110); Estimated GFR 37 mL/min (>60); GLUCOSE 87 mg/dl (70-220); POTASSIUM 4.9 mmol/L (3.5-5.1); SODIUM 138 mmol/L (135-144); TOTAL PROTEIN 8.6 g/dl (6.1-8.1)
[2018-04-27 10:56] LABS: INR 0.96; PROTIME 12.9 Sec (11.9-14.9)
[2018-04-27 11:06] LABS: TROPONIN-I < 0.012 ng/ml (0.000-0.120)
== END 2018-04-27 12:01 | disposition home or self-care (01) ==
LOC: E/R 10:02
DX: D64.9 Anemia, unspecified (principal); I10 Essential (primary) hypertension; E11.9 Type 2 diabetes mellitus without complications; Z79.4 Long term (current) use of insulin
CPT/HCPCS: 36415; 71045; 80053; 84484; 85025; 85610; 85730; 86850; 86900; 86901; 93005; 99285-25

== ENCOUNTER 2018-06-09 11:22 | Day surgery (SDC) | payer OTHER ==
[2018-06-09] MEDS ORDERED: DIPHENHYDRAMINE 50 MG INJ IV (13:00)
[2018-06-09] MEDS ORDERED: OXYCODONE/ACETAMINOPHEN (5/325) TAB PO (13:00)
[2018-06-09] MEDS ORDERED: hydrALAzine 20 MG INJ IV (13:00)
[2018-06-09] MEDS ORDERED: EPHEDrine SULFATE 50 MG/5 ML SYG IV (13:00)
[2018-06-09] MEDS ORDERED: ONDANSETRON 4 MG INJ IV (13:00)
[2018-06-09] MEDS ORDERED: PROCHLORPERAZINE 10 MG INJ IV (13:00)
[2018-06-09] MEDS ORDERED: HYDROmorphONE 1 MG/5 ML IV SYRINGE IV ×3 (13:00)
[2018-06-09] MEDS ORDERED: FENTAnyl 50 MCG/ML VIAL IV ×3 (13:00)
[2018-06-09] MEDS ORDERED: MEPERIDINE 25 MG INJ IV (13:00)
[2018-06-09] MEDS ORDERED: LABETALOL HCL 20MG INJ IV (13:00)
[2018-06-09] MEDS ORDERED: FENTAnyl 50 MCG/ML VIAL (13:23)
[2018-06-09] MEDS ORDERED: PROPOFOL 20 ML (13:23)
[2018-06-09] MEDS ORDERED: LIDOCAINE 2% (SDV) 5 ML INJ (13:23)
[2018-06-09] MEDS ORDERED: MIDAZOLAM 1 MG/ML 2 ML INJ (13:23)
[2018-06-09] MEDS ORDERED: ONDANSETRON 4 MG INJ (13:47)
[2018-06-09] MEDS ORDERED: FAMOTIDINE 20 MG INJ (13:47)
[2018-06-09] MEDS ORDERED: CEFAZOLIN 1 GM INJ (13:48)
[2018-06-09] MEDS: LIDOCAINE 1% (MPF) 30 ML INJ (14:04)
[2018-06-09] MEDS: LIDOCAINE 1%/EPI (1:100,000) (MDV) 20 ML (14:04)
[2018-06-09] MEDS: MINERAL OIL LIGHT 10 ML VIAL (14:05)
[2018-06-09] MEDS: POLYMYXIN B 500000 UNIT INJ (14:06)
[2018-06-09] MEDS: BACITRACIN 50000 UNITS INJ (14:06)
[2018-06-09] MEDS ORDERED: INSULIN ASPART [NOVOLOG] 3 ML PEN SC (15:00)
== END 2018-06-09 16:15 | disposition home or self-care (01) ==
LOC: SDS 11:22
DX: E11.621 Type 2 diabetes mellitus with foot ulcer (principal); E11.42 Type 2 diabetes mellitus with diabetic polyneuropathy; I12.9 Hypertensive chronic kidney disease with stage 1 through stage 4 chronic kidney disease, or unspecified chronic kidney disease; N18.9 Chronic kidney disease, unspecified; E78.5 Hyperlipidemia, unspecified
CPT/HCPCS: 15120; 82962